=== PATIENT | female | born 1965 | race Caucasian/White ===

== ENCOUNTER 2016-10-18 08:45 | Day surgery (SDC) | payer BC ==
[2016-10-17 08:27] VITALS: BMI 22.3
[~2016-10-18 08:45] MED LIST: LACTATED RINGERS 1,000 ML IV SCH
[2016-10-18 09:49] VITALS: TEMP 97.3
[2016-10-18] MEDS ORDERED: LIDOCAINE 1% 20 ML VIAL (10MG/ML) FOR IV START INTRADERMA ONE (09:52)
[2016-10-18] MEDS ORDERED: LIDOCAINE 1% INJ 10MG/ML (20 ML MDV) ONE (10:01)
[2016-10-18] MEDS ORDERED: PROPOFOL 10 MG/ML 20 ML VIAL IV ONE (10:01)
--- NOTE | 2016-10-18 10:26 | P.PCN ---
Date of Procedure: 10/18/16 Procedure(s) Performed: BRIEF HISTORY: Patient is a 51-year-old pleasant white female, scheduled for an elective colonoscopy as a part of screening for colorectal neoplasia. PROCEDURE PERFORMED: Colonoscopy. PREOPERATIVE DIAGNOSIS: Screening for colon cancer. IV sedation per Anesthesia. PROCEDURE: After informed consent was obtained, the patient, was brought into the endoscopy unit. IV conscious sedation was administered by Anesthesia under continuous monitoring. Initially the Olympus CF-160 flexible video colonoscope was then inserted in the rectum, gradually advanced into the cecum without any difficulty. Careful examination was performed as the scope was gradually being withdrawn. Ileocecal valve and the appendiceal orifice were visualized and appeared normal. Prep was poor. Thorough irrigation was performed using irrigation system. The visualized portions of the mucosa of the cecum, ascending colon, transverse colon, descending colon, sigmoid colon, and rectum appeared normal. Retroflexion was performed in the rectum and no lesions were seen. The patient tolerated the procedure well. IMPRESSION: Normal-appearing colon from rectum to cecum with no evidence of colorectal neoplasia. Poor prep in several areas of the colon. RECOMMENDATIONS: Findings of this examination were discussed with the patient as well as a family. She was advised to have a repeat screening colonoscopy in 5 years because of the poor prep that encountered on today's examination.
[2016-10-18 10:30] VITALS: RESP 16
[2016-10-18 10:40] VITALS: BP 115/60; PULSE 61
== END 2016-10-18 11:22 | disposition home or self-care (01) ==
LOC: ORWHC2ENDO 08:45
PROVIDERS: ATTEND Internal Medicine Gastroenterology
DX: Z12.11 Encounter for screening for malignant neoplasm of colon (principal); E07.9 Disorder of thyroid, unspecified; Z79.899 Other long term (current) drug therapy
CPT/HCPCS: 81025; J2001; J2704; G0121; 99153

== ENCOUNTER → 2017-02-06 | Outpatient (CLI) | payer BC ==
--- NOTE | 2017-02-06 09:17 | MM ---
Reason for exam: screening (asymptomatic). Baseline mammogram. Physical Findings: Nurse did not find any significant physical abnormalities on exam. MG Screening Mammo w CAD Bilateral CC and MLO view(s) were taken. No prior studies available for comparison. The breast tissue is heterogeneously dense. This may lower the sensitivity of mammography. No suspicious calcifications are seen. Focal asymmetry far posterior right breast. These results were verbally communicated with the patient and result sheet given to the patient on 02/06/17. ASSESSMENT: Incomplete: need additional imaging evaluation, BI-RAD 0 RECOMMENDATION: Special view mammogram of the right breast. If lesion persists on supplemental views, image directed ultrasound is recommended. [facility] will attempt to contact patient to return for supplemental views and ultrasound if indicated.
--- NOTE | 2017-02-06 09:20 | MM ---
Reason for exam: additional evaluation requested from abnormal screening. Last mammogram was performed 11 years and 3 months ago. Physical Findings: Breast exam preformed at baseline screening. MG Work Up Mamm w CAD RT LM, XCCL, and spot compression MLO view(s) were taken of the right breast. Prior study comparison: November 04, 2005, bilateral screening mammogram w/CAD. There is no discrete abnormality including area of concern. These results were verbally communicated with the patient and result sheet given to the patient on 02/06/17. ASSESSMENT: Negative, BI-RAD 1 RECOMMENDATION: Return to routine screening mammogram schedule for both breasts.
== END | disposition home or self-care (01) ==
LOC: RADMAMWWP 06:56
PROVIDERS: ATTEND Obstetrics & Gynecology
DX: Z12.31 Encounter for screening mammogram for malignant neoplasm of breast (principal); R92.8 Other abnormal and inconclusive findings on diagnostic imaging of breast
CPT/HCPCS: G0202; G0206

== ENCOUNTER → 2017-07-08 | Outpatient (CLI) | payer BC ==
[2017-07-08 18:14] LABS: Basophils % (A) 1 %; CH 29.7; CHCM 31.1; Eosinophils # (A) 0.3 k/uL (0-0.7); Eosinophils % (A) 6 %; HCT 40.3 % (34.0-46.0); HDW 2.19; Luc # (Auto) 0.14; Luc % (Auto) 3; Lymphocytes # (A) 1.2 k/uL (1.0-4.8); Lymphocytes % (A) 23 %; MCH 30.9 pg (25.0-35.0); MCHC 32.1 g/dL (31.0-37.0); MCV 96.1 fL (80.0-100.0); Monocytes # (A) 0.3 k/uL (0-1.0); Monocytes % (A) 6 %; Neutrophils # (A) 3.4 k/uL (1.3-7.7); Neutrophils % (A) 62 %; RDW 12.9 % (11.5-15.5); WBC 5.4 k/uL (3.8-10.6); WBC (Perox) 5.85
[2017-07-08 18:22] LABS: ALT 32 U/L (9-52); AST 24 U/L (14-36); Alkaline Phosphatase 63 U/L (38-126); Anion Gap 11 mmol/L; Blood Urea Nitrogen 9 mg/dL (7-17); Carbon Dioxide 24 mmol/L (22-30); Chloride 106 mmol/L (98-107); Cholesterol 185 mg/dL (<200); Glucose 80 mg/dL (74-99); HDL Cholesterol 54 mg/dL (40-60); Non-African American GFR(MDRD) >60 (>60 ml/min/1.73 sqM); Potassium 4.2 mmol/L (3.5-5.1); Sodium 141 mmol/L (137-145); Total Bilirubin 0.7 mg/dL (0.2-1.3); Total Protein 6.9 g/dL (6.3-8.2)
== END | disposition home or self-care (01) ==
LOC: MMGSC 10:31
PROVIDERS: ATTEND Family Medicine
DX: E03.9 Hypothyroidism, unspecified (principal)
CPT/HCPCS: 36415; 80053; 80061; 84439; 84443; 85025

== ENCOUNTER → 2017-08-27 | Outpatient (CLI) | payer BC | END | disposition home or self-care (01) | LOC: MMGSC 15:54 | PROVIDERS: ATTEND Family Medicine | DX: E03.9 Hypothyroidism, unspecified (principal) | CPT/HCPCS: 36415; 84439; 84443 ==

== ENCOUNTER → 2018-06-15 | Outpatient (CLI) | payer BC ==
--- NOTE | 2018-06-16 10:04 | MM ---
Reason for exam: screening (asymptomatic). Last mammogram was performed 1 year and 4 months ago. Physical Findings: A clinical breast exam by your physician is recommended on an annual basis and results should be correlated with mammographic findings. MG Screening Mammo w CAD Bilateral CC and MLO view(s) were taken. Prior study comparison: February 06, 2017, right breast MG work up mamm w CAD RT. February 06, 2017, bilateral MG screening mammo w CAD. The breast tissue is heterogeneously dense. This may lower the sensitivity of mammography. No significant changes when compared with prior studies. ASSESSMENT: Benign, BI-RAD 2 RECOMMENDATION: Routine screening mammogram of both breasts in 1 year.
== END | disposition home or self-care (01) ==
LOC: RADMAMWWP 16:43
PROVIDERS: ATTEND Obstetrics & Gynecology
DX: Z12.31 Encounter for screening mammogram for malignant neoplasm of breast (principal)
CPT/HCPCS: 77067

== ENCOUNTER → 2019-10-01 | Outpatient (CLI) | payer BC ==
--- NOTE | 2019-10-01 08:47 | US ---
EXAMINATION TYPE: US thyroid st tissue head/neck DATE OF EXAM: 10/01/2019 COMPARISON: NONE CLINICAL HISTORY: E04.1 Thyroid nodule. MEASUREMENTS: GLAND SIZE: Right Lobe: 5.5 x 1.4 x 1.4cm Grossly heterogeneous Left Lobe: 4.8 x 1.5 x 1.3cm Grossly heterogeneous Isthmus Thickness: 0.2 NODULES RIGHT: # of nodules measured on right: 0 LEFT: # of nodules measured on left: 0 ISTHMUS: # of nodules measured within isthmus: 0 Bilateral neck scanned, no evidence of lymphadenopathy. Heterogeneous prominent thyroid with slightly enlarged right thyroid lobe without discrete nodule rodney ntified. IMPRESSION: Heterogeneous prominent thyroid without discrete nodule.
== END | disposition home or self-care (01) ==
LOC: RADUSWWP 08:18
PROVIDERS: ATTEND Family Medicine
DX: E04.1 Nontoxic single thyroid nodule (principal)
CPT/HCPCS: 76536

== ENCOUNTER → 2020-07-27 | Outpatient (CLI) | payer BC ==
--- NOTE | 2020-07-31 12:23 | MM ---
Reason for exam: screening (asymptomatic). Last mammogram was performed 2 years and 1 month ago. Physical Findings: A clinical breast exam by your physician is recommended on an annual basis and results should be correlated with mammographic findings. MG Screening Mammo w CAD Bilateral CC and MLO view(s) were taken. Prior study comparison: June 15, 2018, bilateral MG screening mammo w CAD. February 06, 2017, right breast MG work up mamm w CAD RT. The breast tissue is heterogeneously dense. This may lower the sensitivity of mammography. No significant changes when compared with prior studies. ASSESSMENT: Negative, BI-RAD 1 RECOMMENDATION: Routine screening mammogram of both breasts in 1 year.
== END | disposition home or self-care (01) ==
LOC: RADMAMWWP 14:49
PROVIDERS: ATTEND Obstetrics & Gynecology
DX: Z12.31 Encounter for screening mammogram for malignant neoplasm of breast (principal)
CPT/HCPCS: 77067

== ENCOUNTER → 2021-09-07 | Outpatient (CLI) | payer BC ==
--- NOTE | 2021-09-10 12:30 | MM ---
Reason for exam: screening (asymptomatic). Last mammogram was performed 1 year and 1 month ago. Physical Findings: A clinical breast exam by your physician is recommended on an annual basis and results should be correlated with mammographic findings. MG Screening Mammo w CAD Bilateral CC and MLO view(s) were taken. Prior study comparison: July 27, 2020, bilateral MG screening mammo w CAD. June 15, 2018, bilateral MG screening mammo w CAD. The breast tissue is heterogeneously dense. This may lower the sensitivity of mammography. There is no discrete abnormality. ASSESSMENT: Negative, BI-RAD 1 RECOMMENDATION: Routine screening mammogram of both breasts in 1 year.
== END | disposition home or self-care (01) ==
LOC: RADMAMWWP 14:33
PROVIDERS: ATTEND Obstetrics & Gynecology
DX: Z12.31 Encounter for screening mammogram for malignant neoplasm of breast (principal)
CPT/HCPCS: 77067

== ENCOUNTER → 2022-10-02 | Outpatient (CLI) | payer OTHER ==
--- NOTE | 2022-10-03 16:35 | MM ---
Reason for Exam: Screening (asymptomatic). Last screening mammogram was performed 12 month(s) ago. Patient History: Menarche at age 14. First Full-Term at age 31. Late child-bearing (after 30). Postmenopausal. Risk Values: Viri 5 year model risk: 1.7%. NCI Lifetime model risk: 10.9%. Prior Study Comparison: 06/15/2018 Bilateral Screening Mammogram, [facility]. 07/27/2020 Bilateral Screening Mammogram, [facility]. 09/07/2021 Bilateral Screening Mammogram, [facility]. Tissue Density: The breast tissue is heterogeneously dense. This may lower the sensitivity of mammography. Findings: Analyzed By CAD. Pattern is stable. No suspicious groups of microcalcifications, spiculated or lobular masses, architectural distortion or other secondary signs of malignancy are mammographically apparent. Overall Assessment: Benign, BI-RAD 2 Management: Screening Mammogram of both breasts in 1 year. A negative mammogram report should not preclude additional follow up of suspicious palpable abnormalities. Patient should continue monthly self breast exam. A clinical breast exam by your physician is recommended on an annual basis and results should be correlated with mammographic findings. Electronically signed and approved by: Karson Klein D.O. Radiologis
== END | disposition home or self-care (01) ==
LOC: RADMAMWWP 15:49
PROVIDERS: ATTEND Obstetrics & Gynecology
DX: Z12.31 Encounter for screening mammogram for malignant neoplasm of breast (principal); Z78.0 Asymptomatic menopausal state
CPT/HCPCS: 77067

== ENCOUNTER → 2023-10-15 | Outpatient (CLI) | payer OTHER ==
--- NOTE | 2023-10-19 15:45 | MM ---
Reason for Exam: Screening (asymptomatic). Last mammogram was performed 1 year(s) and 1 month(s) ago. Patient History: Menarche at age 14. First Full-Term at age 31. Late child-bearing (after 30). Postmenopausal. Risk Values: Viri 5 year model risk: 1.8%. NCI Lifetime model risk: 10.7%. Prior Study Comparison: 07/27/2020 Bilateral Screening Mammogram, [facility]. 09/07/2021 Bilateral Screening Mammogram, [facility]. 10/02/2022 Bilateral MG screening mammo w CAD, [facility]. Tissue Density: The breast tissue is heterogeneously dense. This may lower the sensitivity of mammography. Findings: Analyzed By CAD. The pattern is symmetrical and stable. No significant interval changes. No suspicious groups of microcalcifications, spiculated or lobular masses, architectural distortion or other secondary signs of malignancy are mammographically apparent. Overall Assessment: Benign, BI-RAD 2 Management: Screening Mammogram of both breasts in 1 year. A negative mammogram report should not preclude additional follow up of suspicious palpable abnormalities. Patient should continue monthly self breast exam. A clinical breast exam by your physician is recommended on an annual basis and results should be correlated with mammographic findings. Electronically signed and approved by: Karson Klein D.O. Radiologis
== END | disposition home or self-care (01) ==
LOC: RADMAMWWP 15:21
PROVIDERS: ATTEND Family Medicine
DX: Z12.31 Encounter for screening mammogram for malignant neoplasm of breast (principal); Z78.0 Asymptomatic menopausal state
CPT/HCPCS: 77063; 77067

== ENCOUNTER → 2024-11-02 | Outpatient (CLI) | payer OTHER ==
--- NOTE | 2024-11-03 08:27 | MM ---
Reason for Exam: Screening (asymptomatic). Last screening mammogram was performed 12 month(s) ago. Patient History: Menarche at age 14. First Full-Term at age 31. Late child-bearing (after 30). Postmenopausal. Risk Values: Viri 5 year model risk: 1.8%. NCI Lifetime model risk: 10.5%. Prior Study Comparison: 09/07/2021 Bilateral Screening Mammogram, [facility]. 10/02/2022 Bilateral MG screening mammo w CAD, [facility]. 10/15/2023 Bilateral MG 3D screening mammo w/cad, [facility]. Tissue Density: The breasts are heterogeneously dense, which may obscure small masses. Findings: Analyzed By CAD. Right breast: There is no suspicious group of microcalcifications or new suspicious mass. Left breast: There is no suspicious group of microcalcifications or new suspicious mass. Overall Assessment: Negative, BI-RAD 1 Management: Screening Mammogram of both breasts in [address] [facility] will attempt to contact patient to return for supplemental views and ultrasound if indicated. Patient should continue monthly self-breast exams. A clinical breast exam by your physician is recommended on an annual basis. This exam should not preclude additional follow-up of suspicious palpable abnormalities. Note on Viri scores and lifetime risk: 1. A Viri score greater than 3% is considered moderate risk. If this is the case, consider specialist referral to assess eligibility for a risk reducing agent. 2. If overall lifetime risk for the development of breast cancer is 20% or higher, the patient may qualify for future screening with alternating mammogram and breast MRI. [facility], , 11/03/2024 8:24 AM. Electronically signed and approved by: Osvaldo Galan DO
== END | disposition home or self-care (01) ==
LOC: RADMAMWWP 16:36
PROVIDERS: ATTEND Family Medicine
DX: Z12.31 Encounter for screening mammogram for malignant neoplasm of breast (principal); R92.333 Mammographic heterogeneous density, bilateral breasts; Z78.0 Asymptomatic menopausal state
CPT/HCPCS: 77063; 77067